=== PATIENT | female | born 1975 | race Caucasian/White ===

== ENCOUNTER 2024-09-01 17:40 | Inpatient (IN) | payer OTHER ==
[2024-09-01 18:12] VITALS: BMI 25.9
[2024-09-01] MEDS ORDERED: methaDONE HCL 10 MG TABLET (FOR DETOX USE ONLY) PO PRN (18:59)
[2024-09-01] MEDS ORDERED: guaiFENesin 600 MG TABLET.ER (FP) PO PRN (18:59)
[2024-09-01] MEDS ORDERED: NALOXONE (NARCAN) HCL 4 MG/0.1 ML SPRAY NS PRN (18:59)
[2024-09-01] MEDS ORDERED: BISMUTH SUBSALICYLATE 524 MG/30 ML PO PRN (18:59)
[2024-09-01] MEDS ORDERED: ACETAMINOPHEN 325 MG TABLET (FP) PO PRN (18:59)
[2024-09-01] MEDS ORDERED: BENZOCAINE/MENTHOL (CHLORASEPTIC ) LOZENGE MM PRN (18:59)
[2024-09-01] MEDS ORDERED: BENZONATATE 200 MG CAPSULE PO PRN (18:59)
[2024-09-01] MEDS ORDERED: IBUPROFEN 400 MG TABLET (FP) PO PRN (18:59)
[2024-09-01] MEDS ORDERED: POLYETHYLENE GLYCOL (HEALTHYLAX) 3350 17 GM PACKET PO PRN (18:59)
[2024-09-01] MEDS ORDERED: methaDONE HCL 10 MG TABLET ONE (20:39)
[2024-09-01] MEDS: methaDONE HCL 10 MG TABLET (FOR DETOX USE ONLY) PO ONE (20:54)
[2024-09-01] MEDS: diazePAM 5 MG TABLET PO SCH (22:30)
[2024-09-01] MEDS: hydrOXYzine PAMOATE 25 MG CAPSULE (FP) PO PRN (22:31)
[2024-09-01] MEDS: THIAMINE 100 MG TABLET PO SCH (22:31)
[2024-09-01] MEDS: MELATONIN 5 MG TABLETS PO SCH (22:31)
[2024-09-01] MEDS: METHOCARBAMOL 500 MG TABLET PO PRN (22:32)
[2024-09-02] MEDS: PRENATAL VITAMINS W/ FOLIC ACID TABLET (FP) PO SCH (09:44)
[2024-09-02] MEDS: IBUPROFEN 600 MG TABLET (FP) PO PRN (09:55)
[2024-09-02] MEDS: DICYCLOMINE HCL 10 MG CAPSULE PO PRN (09:55)
[2024-09-02] MEDS ORDERED: GABAPENTIN 400 MG CAPSULE PO SCH ×2 (14:00)
[2024-09-02] MEDS: diazePAM 5 MG TABLET PO PRN (14:10)
[2024-09-02] MEDS: GABAPENTIN 400 MG CAPSULE PO SCH (14:10)
[2024-09-02] MEDS: SIMETHICONE 80 MG TAB.CHEW (FP) PO SCH (14:10)
[2024-09-02 16:56] LABS: HEMATOCRIT 41.4 % (32.4-45.2); HEMOGLOBIN 13.6 GM/dL (10.7-15.3); MCH 30.8 pg (25.7-33.7); MCHC 32.9 g/dl (32.0-36.0); MEAN CELL VOLUME 93.7 fl (80-96); RBC 4.42 M/mm3 (3.60-5.2); RDW 14.7 % (11.6-15.6); WHITE BLOOD COUNT 6.2 K/mm3 (4.0-10.0)
[2024-09-02 16:57] LABS: CHLORIDE 106 mmol/L (98-107); POTASSIUM 5.2 mmol/L (3.5-5.1); SODIUM 140 mmol/L (136-145)
[2024-09-02 17:00] LABS: CALCIUM 9.7 mg/dL (8.5-10.1)
[2024-09-02 17:01] LABS: ALBUMIN 3.7 g/dl (3.4-5.0); ANION GAP 4 mmol/L (4-13); BLOOD UREA NITROGEN 17.4 mg/dL (7-18); CO2 31 mmol/L (21-32); GLUCOSE,RANDOM 95 mg/dL (74-106)
[2024-09-02 17:04] LABS: CREATININE 0.9 mg/dL (0.55-1.3); SGOT/AST 45 U/L (15-37); SGPT/ALT 31 U/L (13-61)
[2024-09-02 17:05] LABS: BILIRUBIN,TOTAL 0.8 mg/dL (0.2-1); TOT PROT 7.2 g/dl (6.4-8.2)
[2024-09-02 17:07] LABS: ALK PHOS 89 U/L (45-117)
[2024-09-02 17:23] LABS: MEAN PLT VOLUME 8.8 fl (7.5-11.1); PLATELET COUNT 350 10^3/uL (134-434)
[2024-09-02] MEDS: cloNIDine HCL 0.1 MG TABLET PO PRN (17:40)
[2024-09-02] MEDS: APIXABAN 5 MG TABLET PO SCH (22:31)
[2024-09-03] MEDS: diazePAM 5 MG TABLET PO SCH (06:14)
[2024-09-03] MEDS: MAG HYDROX/AL HYDROX/SIMETH 30 ML UNIT-DOSE CUP PO PRN (06:22)
[2024-09-03] MEDS: methaDONE HCL 10 MG TABLET (FOR DETOX USE ONLY) PO ONE (10:13)
[2024-09-04] MEDS: diazePAM 5 MG TABLET PO SCH ×2 (06:06→09:09)
[2024-09-04] MEDS: LOPERAMIDE HCL 2 MG CAPSULE PO PRN (09:18)
[2024-09-04] MEDS: ONDANSETRON *ODT* 4 MG TABLET SL PRN (22:48)
[2024-09-05] MEDS ORDERED: diazePAM 5 MG TABLET PO ONE (06:00)
[2024-09-05] MEDS: diazePAM 5 MG TABLET PO ONE (06:07)
[2024-09-05] MEDS: MAGNESIUM HYDROX 2400MG/30ML ORAL SUSPENSION 30 ML CUP PO PRN (06:13)
[2024-09-05] MEDS: methaDONE HCL 10 MG TABLET (FOR DETOX USE ONLY) PO ONE (09:23)
[2024-09-05] MEDS: clonazePAM 1 MG ODT TABLETS SL SCH (09:26)
[2024-09-05] MEDS: hydrOXYzine PAMOATE 50 MG CAPSULE (FP) PO PRN (22:43)
[2024-09-06 09:34] VITALS: BP 143/84; PULSE 82; RESP 17; TEMP 98.1
== END 2024-09-06 11:20 | disposition home or self-care (01) | DRG 773 ==
LOC: YASAS 17:40 → Y6N 20:44
PROVIDERS: ADMIT Allergy & Immunology; ATTEND Allergy & Immunology
PROC: HZ2ZZZZ Detoxification Services for Substance Abuse Treatment (ICD-10-PCS; principal; 2024-09-01)
DX: F11.23 Opioid dependence with withdrawal (principal); F10.230 Alcohol dependence with withdrawal, uncomplicated; F13.20 Sedative, hypnotic or anxiolytic dependence, uncomplicated; F19.282 Other psychoactive substance dependence with psychoactive substance-induced sleep disorder; F19.280 Other psychoactive substance dependence with psychoactive substance-induced anxiety disorder; F43.10 Post-traumatic stress disorder, unspecified; Z89.022 Acquired absence of left finger(s); Z86.718 Personal history of other venous thrombosis and embolism; Z86.711 Personal history of pulmonary embolism; Z79.01 Long term (current) use of anticoagulants; Z87.891 Personal history of nicotine dependence
CPT/HCPCS: 36415; 80053; 80305; 80307; 81025; 84132; 85027; 86780; 86803; 87522; 93005; 93010; Q0162